=== PATIENT | female | born 1940 | race Caucasian/White ===

== ENCOUNTER 2018-11-10 15:36 | Inpatient (IN) | payer OTHER ==
[~2018-11-10 15:36] MED LIST: ASPIR 8181 MG; FERRO-TIME325 MG; FOLBIC RF TABL1 EACH; FOLIC ACID0.4 MG; GABAPENTIN300 MG PO; GLUMETZA1000 MG PO; INTESTINEX680 MG PO; OXYC1TAB9 PO; PANADOL EXTRA500 MG; PROTONIX40 MG PO
[2018-11-29] MEDS ORDERED: GLIMEPIRIDE2 MG (09:02)
[2018-11-29] MEDS ORDERED: MAXIMUM D310000 UNIT (09:04)
[2018-11-29] MEDS ORDERED: ENALAPRIL MALEA20 MG (09:06)
[2018-11-29] MEDS ORDERED: GABAPENTIN400 MG (09:06)
[2018-11-29] MEDS ORDERED: [UNRECOGNIZED DRUG - OTHER] (09:07)
[2018-11-29] MEDS ORDERED: BONIVA150 MG (09:08)
== END 2018-12-08 16:37 | DRG 470 ==
LOC: O/R 12-06 06:22 → SURH 12-06 06:22 → SURG 12-06 07:00 → SURH 12-06 14:10
PROVIDERS: ADMIT Orthopaedic Surgery
PROC: 0SRD0J9 Replacement of Left Knee Joint with Synthetic Substitute, Cemented, Open Approach (ICD-10-PCS; principal; 2018-12-06 07:00)
DX: M17.12 Unilateral primary osteoarthritis, left knee (principal); C18.2 Malignant neoplasm of ascending colon; D62 Acute posthemorrhagic anemia; I10 Essential (primary) hypertension; E11.9 Type 2 diabetes mellitus without complications; Z79.4 Long term (current) use of insulin